=== PATIENT | male | born 2000 | race Caucasian/White ===

== ENCOUNTER 2019-03-31 22:43 | Emergency (ER) | payer OTHER ==
[~2019-03-31] VITALS: Ht 162.6 cm; Wt 72.6 kg
[2019-03-31 23:26] VITALS: BP_SYST 140
[2019-04-01] MEDS ORDERED: PREDNISONE 20 MG TABLET PO ONE (02:30)
[2019-04-01] MEDS ORDERED: DIPHENHYDRAMINE HCL 25 MG CAPSULE PO ONE (02:30)
[2019-04-01] MEDS ORDERED: FAMOTIDINE 20 MG TABLET PO ONE (02:30)
[2019-04-01 03:02] VITALS: BP_SYST 135
== END 2019-04-01 03:02 | disposition home or self-care (01) ==
LOC: SED 22:43
DX: S60.862A Insect bite (nonvenomous) of left wrist, initial encounter (principal); L03.114 Cellulitis of left upper limb; W57.XXXA Bitten or stung by nonvenomous insect and other nonvenomous arthropods, initial encounter; Y93.89 Activity, other specified; Y92.89 Other specified places as the place of occurrence of the external cause; Y99.8 Other external cause status
CPT/HCPCS: 99284; J7512; Q0163

== ENCOUNTER 2022-11-12 20:50 | Emergency (ER) | payer MEDICAID ==
[~2022-11-12] VITALS: Ht 162.6 cm; Wt 79.4 kg
[~2022-11-12 20:50] MED LIST: OSEL75CA PO
[2022-11-12 21:10] VITALS: BP_SYST 131
[2022-11-12] MEDS ORDERED: PHEN-707 PO (23:36)
[2022-11-13 00:14] VITALS: BP_SYST 128
== END 2022-11-13 00:14 | disposition home or self-care (01) ==
LOC: SED 20:50
DX: J06.9 Acute upper respiratory infection, unspecified (principal); R05.9 Cough, unspecified; R09.81 Nasal congestion; R50.9 Fever, unspecified; Z79.899 Other long term (current) drug therapy; Z20.822 Contact with and (suspected) exposure to COVID-19
CPT/HCPCS: 36415; 99283